=== PATIENT | female | born 1930 | race Caucasian/White ===

== ENCOUNTER 2017-08-28 00:19 | Emergency (ER) | payer MEDICARE ==
[~2017-08-28] VITALS: Ht 162.6 cm; Wt 81.6 kg
[2017-08-28] MEDS ORDERED: MORPHINE SULFATE 4 MG/ML DISP.SYRIN. IV/SQ PRN (00:45)
[2017-08-28] MEDS ORDERED: ASPIRIN 81 MG TAB.CHEW PO ONE (01:00)
[2017-08-28] MEDS: NITROGLYCERIN SUBLINGUAL 0.4 MG BOTTLE OF 25. SL PRN ×2 (01:00→01:09)
--- NOTE | 2017-08-28 01:29 | PHYS DOC ---
General Chief Complaint: CHEST PAIN Stated Complaint: CHEST PAIN Time Seen by MD: 00:29 Source: patient, family Exam Limitations: no limitations Problems: History of Present Illness Initial Comments Patient is an 87-year-old female brought to the ED by her son with chest pain. Patient has history of coronary artery disease, she had stents placed in June 2016 and 2016. She is visiting family here locally, her grandson is a local physician. The patient states that tonight after hosting a family [employer] republican with her son while cleaning up she developed sudden onset anterior and right sided chest pain described as severe and crushing with accompanying shortness of breath, mild nausea, right arm radiation. She reports that the symptoms are identical to her prior [place] symptoms and asked her son to bring her to the emergency department immediately. She did take 4 baby aspirins prior to coming. She says she had a recent chest pain admission which was ultimately noncardiac, she received results of her recent Holter monitor and stress test this past week both were negative. She takes Plavix as a daily medication. ED vitals: 98.3, 69, 16, 151/61, 100% room air 0115: Patient receives symptomatic relief after sublingual nitroglycerin 2 Timing/Duration: 1-3 hours Severity: severe Modifying Factors: improves with medication Associated Symptoms: chest pain, diaphoresis, malaise, shortness of breath, weakness, other Allergies: Coded Allergies: Opioids - Morphine Analogues (Verified Allergy, Intermediate, 08/28/17) Opioids-Meperidine and Related (Verified Allergy, Intermediate, 08/28/17) Opioids-Methadone and Related (Verified Allergy, Intermediate, 08/28/17) ciprofloxacin (Verified Allergy, Intermediate, 08/28/17) Past Medical History Medical History: other (breast cancer, coronary artery disease) Surgical History: other (cardiac stents placed in June 2016 as well as 2016 , gastric resection) Social History Smoker: non-smoker Alcohol: none Drugs: none Review of Systems Constitutional: denies chills, diaphoresis, denies fever, malaise Respiratory: denies cough, shortness of breath, denies wheezing Cardiovascular: chest pain, denies edema, denies palpitations, denies syncope Gastrointestinal: denies abdominal pain, nausea, denies vomiting Genitourinary: denies dysuria, denies frequency, denies hematuria Musculoskeletal: denies back pain, denies joint swelling, denies neck pain Psychiatric/Neurological: denies headache, denies numbness, denies paresthesia , denies weakness Hematologic/Lymphatic: denies blood clots, denies easy bleeding, denies easy bruising Physical Exam General Appearance: WD/WN, mild distress Ear, Nose, Throat: hearing grossly normal, normal ENT inspection, normal pharynx Neck: non-tender, supple Respiratory: normal breath sounds, no respiratory distress Cardiovascular: normal peripheral pulses, regular rate, rhythm, other (trace pitting lower extremity edema bilaterally) Gastrointestinal: non tender, soft Extremities: normal range of motion, non-tender Neurologic/Psychiatric: senior landscape architect II-XII nml as tested, no motor/sensory deficits, alert, normal mood/affect, oriented x 3 Skin: normal color, pallor Orders, Labs, Meds EKG: Sinus rhythm 79 bpm, left axis deviation with nonspecific intraventricular block, T contour abnormality no STEMI criteria. No prior studies available, interpreted by me. Chest AP: The cardiac silhouette appears to be mildly enlarged, costophrenic angles are clear no discrete infiltrate noted interpreted by me. 0104: I discussed the patient with on-call liquor grinding mill operator Dr. Rdz. After thorough discussion of her history, ED presentation, and he available results he recommends transfer to [facility] and heparin 5000 units intravenously. 0109: I discussed the patient with environmental planning engineer hospitalist Dr. Martinez. After thorough discussion he accepts the patient to the cardiac unit at [facility]. Impression: Unstable angina 0126: The patient remained asymptomatic after sublingual nitroglycerin, 2 L O2 per nasal cannula initiated and the patient is awaiting transfer. Departure Time of Disposition: 01:27 Disposition: 02 XFER SHT-TRM HOSP Diagnosis: unstable angina Condition: IMPROVED Additional Instructions: EMS transfer to [facility] for CVC admission Dr. Martinez is accepting. TAMMY BARTH DO Aug 28, 2017 01:29
[2017-08-28] MEDS ORDERED: HEPARIN for IV BOLUS 10,000 UNIT/10 ML VIAL. IV ONE (01:30)
[2017-08-28 01:45] LABS: BASO % 0 % (0-3); EOS # 0.1 x10^3/uL (0.0-0.7); EOS % 1 % (0-3); HEMATOCRIT 40.9 % (36.0-47.0); HEMOGLOBIN 13.8 g/dL (12.0-15.5); LYMPH # 3.3 x10^3/uL (1.0-4.8); LYMPH % 32 % (24-48); MEAN CORPUSCULAR HEMOGLOBIN 31 pg (25-35); MEAN CORPUSCULAR HGB CONC 34 g/dL (31-37); MEAN CORPUSCULAR VOLUME 93 fL (79-100); MONO # 1.1 x10^3/uL (0.0-1.1); MONO % 11 % (0-9); NEUT # 5.7 x10^3uL (1.8-7.7); NEUT % 55 % (31-73); PLATELET COUNT 218 x10^3/uL (140-400); RED BLOOD COUNT 4.41 x10^6/uL (3.50-5.40); RED CELL DISTRIBUTION WIDTH 14.4 % (11.5-14.5); WHITE BLOOD COUNT 10.3 x10^3/uL (4.0-11.0)
[2017-08-28 01:48] VITALS: BP 129/54
[2017-08-28 01:51] LABS: ALBUMIN/GLOBULIN RATIO 0.9 (1.0-1.7); CALCIUM 9.3 mg/dL (8.5-10.1); GFR 52.6; POTASSIUM 3.4 mmol/L (3.5-5.1); TOTAL BILIRUBIN 0.4 mg/dL (0.2-1.0); TOTAL PROTEIN 8.3 g/dL (6.4-8.2)
--- NOTE | 2017-08-28 03:09 | EKG ---
[address] [address] Test Date: 2017-08-28 Test Time: 00:28:28 Pat Name: DOE WATSON Department: Room: Gender: F Director Business Management: DIANE : 1930 Requested By: TAMMY BARTH Order Number: [id number] Reading MD: Measurements Intervals [place] Rate: 79 P: 66 [place]: 252 QRS: -70 QRSD: 142 T: 107 QT: 418 QTc: 480 Interpretive Statements SINUS RHYTHM PROLONGED [place] INTERVAL ABNORMAL LEFT AXIS DEVIATION NON SPECIFIC INTRAVENTRICULAR BLOCK QRS(T) CONTOUR ABNORMALITY CONSISTENT WITH ANTEROSEPTAL INFARCT POSSIBLY RECENT CONSISTENT WITH INFERIOR INFARCT PROBABLY OLD ABNORMAL ECG RI6.01 Unconfirmed report No previous ECG available for comparison
--- NOTE | 2017-08-28 09:57 | RAD ---
AP PORTABLE CHEST Clinical Indication: Right-sided chest pain radiating to the axilla. Comparison: None. Findings: Atherosclerotic aortic arch. The cardiomediastinal silhouette is normal. Lungs are clear. There is no pneumothorax. No pleural effusion is appreciated. There is no acute bone abnormality. Minimal right convexity lumbar scoliosis. Surgical clips project near the gastroesophageal junction. IMPRESSION: No acute cardiopulmonary process.
== END 2017-08-28 01:50 | disposition short-term general hospital (02) ==
LOC: ER 00:19
DX: I25.110 Atherosclerotic heart disease of native coronary artery with unstable angina pectoris (principal); Z79.02 Long term (current) use of antithrombotics/antiplatelets; Z95.5 Presence of coronary angioplasty implant and graft; Z88.5 Allergy status to narcotic agent; Z88.1 Allergy status to other antibiotic agents
CPT/HCPCS: 36415; 71010; 80053; 82550; 83690; 83735; 83880; 84484; 85025; 85379; 85610; 85730; 93005; 96374; 99285; J1644

== ENCOUNTER → 2018-01-24 | Outpatient (CLI) | payer MEDICARE ==
--- NOTE | 2018-01-24 15:22 | RAD ---
EXAM: Chest, 2 views. HISTORY: Stent placement. Cough and shortness of breath. COMPARISON: 08/28/2017 FINDINGS: Frontal and lateral views of the chest are obtained. There is left lower lobe pleural-parenchymal scarring. There is no infiltrate, effusion or pneumothorax. There is mild enlargement of the cardiac silhouette. There is a posterior left seventh rib defect. There are postoperative changes involving the upper abdomen. IMPRESSION: No acute pulmonary finding. There is a suspected stable left basilar pleural parenchymal scarring. Electronically signed by: Francesca Devine MD (01/24/2018 3:19 PM) [place] [id number]
== END | disposition home or self-care (01) ==
LOC: RAD 13:29
PROVIDERS: ATTEND Specialist
DX: I21.4 Non-ST elevation (NSTEMI) myocardial infarction (principal); R05 Cough
CPT/HCPCS: 71046

== ENCOUNTER → 2018-03-27 | Outpatient (CLI) | payer MEDICARE ==
--- NOTE | 2018-04-13 15:09 | RAD ---
DATE: 03/27/2018 EXAM: MAMMO JOSE SCREEN LT HISTORY: Previous right breast cancer COMPARISON: 12/20/2016 This study was interpreted with the benefit of Computerized Aided Detection (CAD). The breast parenchyma shows scattered fibroglandular densities. Breast parenchyma level B. FINDINGS: 2-D and 3-D tomosynthesis imaging was performed in CC and MLO projections. There is an unchanged small lymph node type density in the lateral aspect of the left breast. No new or enlarging breast densities are seen. Benign type calcifications are present. No suspicious microcalcifications have developed. IMPRESSION: Stable left mammograms without evidence of malignancy. BI-RADS CATEGORY: 2 BENIGN FINDING(S) RECOMMENDED FOLLOW-UP: 12M 12 MONTH FOLLOW-UP PQRS compliance statement: Patient information was entered into a reminder system with a target due date for the next mammogram. Mammography is a sensitive method for finding small breast cancers, but it does not detect them all and is not a substitute for careful clinical examination. A negative mammogram does not negate a clinically suspicious finding and should not result in delay in biopsying a clinically suspicious abnormality. "Our facility is accredited by the [employer] Mammography Program."
== END | disposition home or self-care (01) ==
LOC: MAMMO 09:41
PROVIDERS: ATTEND Specialist
DX: Z12.31 Encounter for screening mammogram for malignant neoplasm of breast (principal); Z95.5 Presence of coronary angioplasty implant and graft
CPT/HCPCS: 77063; 77067

== ENCOUNTER 2018-09-02 15:01 | Emergency (ER) | payer MEDICARE ==
[~2018-09-02] VITALS: Ht 162.6 cm; Wt 81.6 kg
[2018-09-02 15:38] VITALS: BP 118/50
--- NOTE | 2018-09-02 15:43 | PHYS DOC ---
Past History Past Medical History: Cancer, [place] Past Surgical History: Other Alcohol Use: None Drug Use: None Adult General Chief Complaint Chief Complaint: WRIST PAIN HPI HPI 88-year-old female presents with left wrist bruising. The patient was making her bed this morning and she will examine her wrist and she noticed that her left wrist had a very large 4 cm x 4 cm bruise that was over a centimeter thick. She is on Brilinta due to history of coronary artery disease and multiple stents. The patient does not recall any direct trauma to the area. She' s had no recent venipunctures. It is not painful, but slightly uncomfortable due to the pressure. Patient is feeling normal otherwise. She denies fever or chills. Review of Systems Review of Systems Constitutional: Denies fever or chills [] Eyes: Denies change in visual acuity, redness, or eye pain [] HENT: Denies nasal congestion or sore throat [] Respiratory: Denies cough or shortness of breath [] Cardiovascular: No additional information not addressed in HPI [] GI: Denies abdominal pain, nausea, vomiting, bloody stools or diarrhea [] : Denies dysuria or hematuria [] Musculoskeletal: Denies back pain or joint pain [] Integument: Left wrist hematoma[] Neurologic: Denies headache, focal weakness or sensory changes [] Endocrine: Denies polyuria or polydipsia [] All other systems were reviewed and found to be within normal limits, except as documented in this note. Allergies Allergies Allergies Coded Allergies Type Severity Reaction Last Updated Verified Opioids - Morphine Analogues Allergy Intermediate 08/28/17 Yes Opioids-Meperidine and Related Allergy Intermediate 08/28/17 Yes Opioids-Methadone and Related Allergy Intermediate 08/28/17 Yes ciprofloxacin Allergy Intermediate 08/28/17 Yes Physical Exam Physical Exam Constitutional: Well developed, well nourished, no acute distress, non-toxic appearance. [] HENT: Normocephalic, atraumatic, bilateral external ears normal, oropharynx moist, no oral exudates, nose normal. [] Eyes: PERRLA, EOMI, conjunctiva normal, no discharge. [] Neck: Normal range of motion, no tenderness, supple, no stridor. [] Cardiovascular:Heart rate regular rhythm, no murmur [] Lungs & Thorax: Bilateral breath sounds clear to auscultation [] Abdomen: Bowel sounds normal, soft, no tenderness, no masses, no pulsatile masses. [] Skin: 4 cm x 4 cm hematoma that is 1.5 cm thick over the left wrist. No signs of infection. No signs of injury.[] Back: No tenderness, no CVA tenderness. [] Extremities: No tenderness, no cyanosis, no clubbing, ROM intact, no edema. [] Neurologic: Alert and oriented X 3, normal motor function, normal sensory function, no focal deficits noted. [] Psychologic: Affect normal, judgement normal, mood normal. [] EKG EKG [] Radiology/Procedures Radiology/Procedures [] Course & Med Decision Making Course & Med Decision Making Pertinent Labs and Imaging studies reviewed. (See chart for details) Based on the history and physical exam, this appears to be a minor trauma induced or spontaneous rupture of a vessel in the superficial wrist. It has not grown in size since she left her house. It seems to have self-limited. I do not believe ultrasound would be helpful as this is clearly blood. I have recommended that the patient monitor the wound for signs of infection or complication. Otherwise, it will resolve on its own. She is stable for discharge at this time. [] Dragon Disclaimer Dragon Disclaimer This electronic medical record was generated, in whole or in part, using a voice recognition dictation system. Departure Departure: Referrals: KATTY COTTER MD (PCP) ANDERSON SUMNER DO Sep 02, 2018 15:43
== END 2018-09-02 15:50 | disposition home or self-care (01) ==
LOC: ER 15:01
DX: S60.212A Contusion of left wrist, initial encounter (principal); I25.2 Old myocardial infarction; Z88.5 Allergy status to narcotic agent; Z88.1 Allergy status to other antibiotic agents; X58.XXXA Exposure to other specified factors, initial encounter; Y93.89 Activity, other specified; Y92.89 Other specified places as the place of occurrence of the external cause; Y99.8 Other external cause status
CPT/HCPCS: 99281

== ENCOUNTER 2019-12-29 14:58 | Emergency (ER) | payer MEDICARE ==
[~2019-12-29] VITALS: Ht 162.6 cm; Wt 69.3 kg
[2019-12-29 14:58] VITALS: BP 134/56
[2019-12-29] MEDS ORDERED: IOHEXOL 300 MG/ML 75 ML VIAL. IV ONE (15:30)
[2019-12-29] MEDS ORDERED: CONTRAST GIVEN MC PRN (15:30)
--- NOTE | 2019-12-29 15:34 | EKG ---
[address] [address] Test Date: 2019-12-29 Test Time: 15:11:54 Pat Name: DOE WATSON Department: Room: Gender: F Defect Cutter: : 1930 Requested By: ADAN MORALES Order Number: [id number] Reading MD: Ignacio Rdz Measurements Intervals [place] Rate: 77 P: 56 [place]: 228 QRS: -51 QRSD: 146 T: 92 QT: 438 QTc: 498 Interpretive Statements SINUS RHYTHM ATRIAL PREMATURE COMPLEX(ES) PROLONGED [place] INTERVAL ABNORMAL LEFT AXIS DEVIATION NON SPECIFIC INTRAVENTRICULAR BLOCK QRS(T) CONTOUR ABNORMALITY CONSISTENT WITH ANTEROSEPTAL INFARCT AGE UNDETERMINED ABNORMAL ECG Electronically Signed On 12-30-2019 20:15:54 CDT by Ignacio Rdz
[2019-12-29 15:51] LABS: BASO % 1 % (0-3); EOS # 0.3 x10^3/uL (0.0-0.7); EOS % 4 % (0-3); HEMATOCRIT 39.7 % (36.0-47.0); HEMOGLOBIN 13.1 g/dL (12.0-15.5); LYMPH # 2.4 x10^3/uL (1.0-4.8); LYMPH % 35 % (24-48); MEAN CORPUSCULAR HEMOGLOBIN 30 pg (25-35); MEAN CORPUSCULAR HGB CONC 33 g/dL (31-37); MEAN CORPUSCULAR VOLUME 91 fL (79-100); MONO # 0.8 x10^3/uL (0.0-1.1); MONO % 11 % (0-9); NEUT # 3.5 x10^3uL (1.8-7.7); NEUT % 50 % (31-73); PLATELET COUNT 208 x10^3/uL (140-400); RED BLOOD COUNT 4.36 x10^6/uL (3.50-5.40); RED CELL DISTRIBUTION WIDTH 14.6 % (11.5-14.5)
[2019-12-29 15:58] LABS: CALCIUM 8.9 mg/dL (8.5-10.1); CREATININE 0.9 mg/dL (0.6-1.0); GFR 59.1; POTASSIUM 4.5 mmol/L (3.5-5.1)
[2019-12-29 16:14] LABS: ALBUMIN 3.6 g/dL (3.4-5.0); ALBUMIN/GLOBULIN RATIO 1.1 (1.0-1.7); MAGNESIUM 2.2 mg/dL (1.8-2.4); TOTAL BILIRUBIN 0.5 mg/dL (0.2-1.0); TOTAL PROTEIN 6.8 g/dL (6.4-8.2)
--- NOTE | 2019-12-29 16:36 | PHYS DOC ---
Past History Past Medical History: Cancer, GERD, [place] Past Surgical History: Cancer Surgery, Other Smoking: Non-smoker Alcohol Use: None Drug Use: None General Adult EDM: Chief Complaint: MECHANICAL FALL HPI: HPI: 89-year-old female presents via EMS with report of mechanical trip and fall just prior to arrival at her place of residence in assisted living. Patient reports I "tripped over my own feet". Patient reports falling to the ground and hurting her left chest wall. Reports pain with deep inspiration. Reports prior surgery to that area. Denies head trauma or neck pain. Denies loss of consciousness. Denies use of blood thinners. Denies any lightheadedness or chest pain prior to the fall. Denies nausea/vomiting/diarrhea. Denies laceration. Denies dysuria. Denies fever or chills. Review of Systems: Review of Systems: Constitutional: Denies fever or chills Eyes: Denies redness or eye pain HENT: Denies nasal congestion or epistaxis Respiratory: Denies cough or shortness of breath Cardiovascular: Reports left lateral chest pain; denies palpitations GI: Denies abdominal pain, nausea, or vomiting : Denies dysuria or hematuria Musculoskeletal: Denies back pain or joint pain Integument: Denies rash or skin lesions Neurologic: Denies headache, focal weakness or sensory changes Complete systems were reviewed and found to be within normal limits, except as documented in this note. Current Medications: Current Meds: Current Medications Medications (Trade) Dose Ordered Sig/Yolanda Start Time Stop Time Status Last Admin Dose Admin Info (Do NOT chart on this entry -- for MONITORING) 1 each PRN DAILY PRN 12/29/19 15:30 12/31/19 15:29 Iohexol (Omnipaque 300 Mg/ml) 75 ml 1X ONCE 12/29/19 15:30 12/29/19 15:31 DC 12/29/19 15:30 75 ML Allergies: Allergies: Allergies Coded Allergies Type Severity Reaction Last Updated Verified Opioids - Morphine Analogues Allergy Intermediate 08/28/17 Yes Opioids-Meperidine and Related Allergy Intermediate 08/28/17 Yes Opioids-Methadone and Related Allergy Intermediate 08/28/17 Yes ciprofloxacin Allergy Intermediate 08/28/17 Yes Physical Exam: PE: Constitutional: Elderly, well developed, well nourished, no acute distress, non- toxic appearance HENT: Normocephalic, atraumatic, oropharynx moist Eyes: PERRL, EOMI, conjunctiva normal, no discharge, no nystagmus Neck: Normal range of motion, no midline tenderness, supple Cardiovascular: Heart rate normal, regular rhythm Lungs & Thorax: Bilateral breath sounds diminished, no wheezing. left anterior and lateral lower rib tenderness of palpation Abdomen: Soft, no tenderness; pelvis stable and nontender Skin: Warm, dry, no erythema, no rash, no laceration, no ecchymosis to chest wall, right forearm healing ecchymosis noted Back: No midline tenderness, no CVA tenderness Extremities: No tenderness, ROM intact, no edema Neurologic: Alert and oriented X 3, normal motor function, normal sensory function, no focal deficits noted Psychologic: Affect normal, judgment normal Current Patient Data: Labs: Laboratory Tests Test 12/29/19 15:30 White Blood Count 7.0 x10^3/uL (4.0-11.0) Red Blood Count 4.36 x10^6/uL (3.50-5.40) Hemoglobin 13.1 g/dL (12.0-15.5) Hematocrit 39.7 % (36.0-47.0) Mean Corpuscular Volume 91 fL (79-100) Mean Corpuscular Hemoglobin 30 pg (25-35) Mean Corpuscular Hemoglobin Concent 33 g/dL (31-37) Red Cell Distribution Width 14.6 % (11.5-14.5) H Platelet Count 208 x10^3/uL (140-400) Neutrophils (%) (Auto) 50 % (31-73) Lymphocytes (%) (Auto) 35 % (24-48) Monocytes (%) (Auto) 11 % (0-9) H Eosinophils (%) (Auto) 4 % (0-3) H Basophils (%) (Auto) 1 % (0-3) Neutrophils # (Auto) 3.5 x10^3uL (1.8-7.7) Lymphocytes # (Auto) 2.4 x10^3/uL (1.0-4.8) Monocytes # (Auto) 0.8 x10^3/uL (0.0-1.1) Eosinophils # (Auto) 0.3 x10^3/uL (0.0-0.7) Basophils # (Auto) 0.0 x10^3/uL (0.0-0.2) Prothrombin Time 10.8 SEC (9.4-11.4) Prothrombin Time INR 1.0 (0.9-1.1) Activated Partial Thromboplast Time 26 SEC (23-33) Sodium Level 140 mmol/L (136-145) Potassium Level 4.5 mmol/L (3.5-5.1) Chloride Level 105 mmol/L (98-107) Carbon Dioxide Level 25 mmol/L (21-32) Anion Gap 10 (6-14) Blood Urea Nitrogen 20 mg/dL (7-20) Creatinine 0.9 mg/dL (0.6-1.0) Estimated GFR (Cockcroft-Gault) 59.1 BUN/Creatinine Ratio 22 (6-20) H Glucose Level 89 mg/dL (70-99) Calcium Level 8.9 mg/dL (8.5-10.1) Magnesium Level 2.2 mg/dL (1.8-2.4) Total Bilirubin 0.5 mg/dL (0.2-1.0) Aspartate Amino Transferase (AST) 20 U/L (15-37) Alanine Aminotransferase (ALT) 22 U/L (14-59) Alkaline Phosphatase 68 U/L (46-116) Creatine Kinase 46 U/L (26-192) Creatine Kinase MB (Mass) 1.1 ng/mL (0.0-3.6) Creatine Kinase MB Relative Index 2.4 % (0-4) Troponin I Quantitative < 0.017 ng/mL (0-0.055) Total Protein 6.8 g/dL (6.4-8.2) Albumin 3.6 g/dL (3.4-5.0) Albumin/Globulin Ratio 1.1 (1.0-1.7) Lipase 34 U/L (73-393) L Vital Signs: Vital Signs Date Time Temp Pulse Resp B/P (MAP) Pulse Ox O2 Delivery O2 Flow Rate FiO2 12/29/19 14:58 98.1 79 16 134/56 (82) 98 Room Air EKG: EKG: @1511 NSR at 77bpm, NO ST elevation, LBBB, occasional PVC Radiology/Procedures: Radiology/Procedures: PROCEDURE: CT HEAD AND CERVICAL SPINE WO Examination: CT head and cervical spine without contrast CT HEAD INDICATION: Near syncope, fall, pain COMPARISON: None Available. Exposure: One or more of the following individualized dose reduction techniques were utilized for this examination: 1. Automated exposure control 2. Adjustment of the mA and/or kV according to patient size 3. Use of iterative reconstruction technique TECHNIQUE: 5 mm contiguous axial images were obtained from the skull base to the vertex in both bone and soft tissue algorithm. FINDINGS: Mild bilateral periventricular white matter hypodensities likely chronic small vessel ischemic disease. No evidence of acute intracranial hemorrhage. No extra-axial fluid collections. No mass effect or midline shift. Ventricular size is appropriate. Basal cisterns are patent. No fractures identified.Marquez-white differentiation is preserved.Globes and orbits are within normal limits. Paranasal sinuses and mastoid air cells are clear. IMPRESSION: No acute intracranial findings. CT CERVICAL SPINE COMPARISON: None Available. Technique: 2.5 mm contiguous axial images were obtained from the skull base through the cervicothoracic junction in both bone and soft tissue algorithm. Additional sagittal and coronal reconstructions were also performed. FINDINGS: Vertebral body heights are maintained. Cervical lordosis is preserved. The lateral masses of C1 are aligned upon C2. No fractures identified. The bony canal is patent throughout. Moderate intervertebral disc height loss identified in cervical spine most at C4-C5, C5-6, C6-C7 vertebral levels with small posterior disc bulges identified. The paraspinous soft tissues are unremarkable. Visualized intracranial contents are unremarkable. Lung apices are clear. IMPRESSION: 1. No acute fracture of the cervical spine. Correlate clinically. 2. Moderate degenerative changes cervical spine. Electronically signed by: Sree Lewis MD (12/29/2019 5:15 PM) [id number] PROCEDURE: CT CHEST W/CONTRAST Examination: CT chest with IV contrast HISTORY: History of fall pain in the left chest wall COMPARISON: None available Technique: Axial CT images of the chest were performed with IV contrast. Coronal and sagittal reformats are performed Exposure: One or more of the following individualized dose reduction techniques were utilized for this examination: 1. Automated exposure control 2. Adjustment of the mA and/or kV according to patient size 3. Use of iterative reconstruction technique FINDINGS: The visualized tendon grossly appears unremarkable. The central airways are patent. There is a 5.5 mm nodule identified in the right middle lobe of the lung. No evidence of pleural effusion or pneumothorax. Mild bibasilar lung airspace opacities likely atelectasis or infiltrates. There is mild herniation of the chest wall fat between the sixth seventh posterolateral ribs probably prior surgical changes.. The esophagus is distended /dilated with food material. The liver, adrenals grossly appears unremarkable. The spleen in enhances heterogeneously likely phase of contrast administration. No perisplenic fluid identified. No evidence of displaced rib fracture identified. Moderate degenerative changes thoracic spine. Minimal superior endplate Schmorl's node or compression change of T8 vertebral body. IMPRESSION: 1. Minimal superior endplate Schmorl's node or compression change of T8 vertebral body. 2. Dilated appearing esophagus with food material. Recommend follow-up nonemergent esophagram. 3. 5.5 mm nodule identified in the right middle lobe of the lung. Follow-up per Fleischner Society guidelines with a follow-up CT in 6-12 months. Electronically signed by: Sree Lewis MD (12/29/2019 5:07 PM) [id number] Course & Med Decision Making: Course & Med Decision Making Pertinent Labs and Imaging studies reviewed. (See chart for details) Patient presents with mechanical trip and fall with left chest wall pain. Patient neurologically intact. NIHSS 0. Given risk factors and possible distracting injury CT head/cervical spine obtained. CT head/cervical spine without acute process. CT chest obtained without hemothorax/pneumothorax/rib fracture. Incidental findings noted regarding esophagus as well as pulmonary nodule. Labs obtained and posted to chart. Troponin within normal limits. UA without signs of infection. EKG stable. Pain addressed. Incentive spirometer provided to prevent atelectasis. Patient stable for discharge with outpatient follow-up with PCP. Discussed findings and plan with patient, who acknowledges understanding and agreement. [place]on Disclaimer: Betty Disclaimer: This electronic medical record was generated, in whole or in part, using a voice recognition dictation system. Departure Departure: Impression: Primary Impression: Chest wall contusion Qualified Codes: S20.212A - Contusion of left front wall of thorax, initial encounter Additional Impression: Incidental lung nodule Disposition: 01 HOME, SELF-CARE Condition: STABLE Referrals: KATTY COTTER MD (PCP) Patient Instructions: Blunt Chest Trauma, Chest Contusion, [id number], Incentive Spirometer, Incidental Abnormal Radiological Finding, Pulmonary Nodule, [id number] Additional Instructions: ICE area of discomfort 20 min on then leave off for next 20 min. Repeat as needed for next few days. Use incentive spirometer as educated in ED. At least 10 times in a row 5 times daily for next 7 days. Use over the counter Tylenol as needed for pain or discomfort. NIHSS - ED NIH Stroke Scale: NIH Stroke Scale Response (Comments) Value Level of Consciousness: 0 Alert/Responsive 0 LOC Questions: 0 Answers both correctly 0 LOC Commands: 0 Performs both tasks 0 Best Gaze: 0 Normal 0 Visual: 0 No visual loss 0 Facial Palsy: 0 Normal, symmetrical 0 Motor - Left Arm 0 No drift 0 Motor - Right Arm 0 No drift 0 Motor - Left Leg 0 No drift 0 Motor: Right Leg 0 No drift 0 Limb Ataxia: 0 Absent 0 Sensory: 0 No loss 0 Best Language: 0 Normal 0 Dysathria: 0 Normal 0 Extinction and Inattention: 0 Normal 0 Total 0 MORALES,ADAN Lugo DO Dec 29, 2019 16:36
--- NOTE | 2019-12-29 17:10 | RAD ---
Examination: CT chest with IV contrast HISTORY: History of fall pain in the left chest wall COMPARISON: None available Technique: Axial CT images of the chest were performed with IV contrast. Coronal and sagittal reformats are performed Exposure: One or more of the following individualized dose reduction techniques were utilized for this examination: 1. Automated exposure control 2. Adjustment of the mA and/or kV according to patient size 3. Use of iterative reconstruction technique FINDINGS: The visualized tendon grossly appears unremarkable. The central airways are patent. There is a 5.5 mm nodule identified in the right middle lobe of the lung. No evidence of pleural effusion or pneumothorax. Mild bibasilar lung airspace opacities likely atelectasis or infiltrates. There is mild herniation of the chest wall fat between the sixth seventh posterolateral ribs probably prior surgical changes.. The esophagus is distended /dilated with food material. The liver, adrenals grossly appears unremarkable. The spleen in enhances heterogeneously likely phase of contrast administration. No perisplenic fluid identified. No evidence of displaced rib fracture identified. Moderate degenerative changes thoracic spine. Minimal superior endplate Schmorl's node or compression change of T8 vertebral body. IMPRESSION: 1. Minimal superior endplate Schmorl's node or compression change of T8 vertebral body. 2. Dilated appearing esophagus with food material. Recommend follow-up nonemergent esophagram. 3. 5.5 mm nodule identified in the right middle lobe of the lung. Follow-up per Fleischner Society guidelines with a follow-up CT in 6-12 months. Electronically signed by: Sree Lewis MD (12/29/2019 5:07 PM) [id number]
--- NOTE | 2019-12-29 17:18 | RAD ---
Examination: CT head and cervical spine without contrast CT HEAD INDICATION: Near syncope, fall, pain COMPARISON: None Available. Exposure: One or more of the following individualized dose reduction techniques were utilized for this examination: 1. Automated exposure control 2. Adjustment of the mA and/or kV according to patient size 3. Use of iterative reconstruction technique TECHNIQUE: 5 mm contiguous axial images were obtained from the skull base to the vertex in both bone and soft tissue algorithm. FINDINGS: Mild bilateral periventricular white matter hypodensities likely chronic small vessel ischemic disease. No evidence of acute intracranial hemorrhage. No extra-axial fluid collections. No mass effect or midline shift. Ventricular size is appropriate. Basal cisterns are patent. No fractures identified.Marquez-white differentiation is preserved.Globes and orbits are within normal limits. Paranasal sinuses and mastoid air cells are clear. IMPRESSION: No acute intracranial findings. CT CERVICAL SPINE COMPARISON: None Available. Technique: 2.5 mm contiguous axial images were obtained from the skull base through the cervicothoracic junction in both bone and soft tissue algorithm. Additional sagittal and coronal reconstructions were also performed. FINDINGS: Vertebral body heights are maintained. Cervical lordosis is preserved. The lateral masses of C1 are aligned upon C2. No fractures identified. The bony canal is patent throughout. Moderate intervertebral disc height loss identified in cervical spine most at C4-C5, C5-6, C6-C7 vertebral levels with small posterior disc bulges identified. The paraspinous soft tissues are unremarkable. Visualized intracranial contents are unremarkable. Lung apices are clear. IMPRESSION: 1. No acute fracture of the cervical spine. Correlate clinically. 2. Moderate degenerative changes cervical spine. Electronically signed by: Sree Lewis MD (12/29/2019 5:15 PM) [id number]
[2019-12-29 17:29] LABS: BACTERIA,URINE 0 /HPF (0-FEW); BILIRUBIN,URINE NEG (NEG); CLARITY,URINE CLEAR; COLOR,URINE YELLOW; GLUCOSE,URINE NEG (NEG); NITRITE,URINE NEG (NEG); RBC,URINE OCC /HPF (0-2); SQUAMOUS EPITHELIAL CELL,UR MOD /LPF; UROBILINOGEN,URINE 0.2 mg/dL (0.2 mg/dL)
[2019-12-29] MEDS ORDERED: ACETAMINOPHEN 325 MG TABLET PO ONE ×2 (17:49→18:00)
== END 2019-12-29 18:00 | disposition home or self-care (01) ==
LOC: ER 14:58
DX: S20.212A Contusion of left front wall of thorax, initial encounter (principal); K21.9 Gastro-esophageal reflux disease without esophagitis; I25.2 Old myocardial infarction; Z88.5 Allergy status to narcotic agent; Z88.1 Allergy status to other antibiotic agents; W01.0XXA Fall on same level from slipping, tripping and stumbling without subsequent striking against object, initial encounter; Y93.89 Activity, other specified; Y92.89 Other specified places as the place of occurrence of the external cause; Y99.8 Other external cause status
CPT/HCPCS: 36415; 70450; 71260; 72125; 80053; 81001; 82553; 83690; 83735; 84484; 85025; 85610; 85730; 87086; 93005; 99285; Q9967